=== PATIENT | male | born 1970 | race Caucasian/White ===

== ENCOUNTER 2019-04-26 18:00 | Emergency (ER) | payer OTHER ==
--- NOTE | 2019-04-26 19:49 | EDM.PDOC ---
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 He states he's had chills for the last 3 days [place] he does not know if he had fever but he has felt warm and flushed it does respond to antipyretics denies any other symptoms Headache Pain Score (Numeric/FACES): 7 - Related Data Allergies Allergy/AdvReac Type Severity Reaction Status Date / Time No Known Allergies Allergy Verified 04/26/19 18:58 Home Meds: Home Meds Acetaminophen [Tylenol] 650 mg PO Q6H 04/26/19 [History] Acetaminophen/Butalbital/Caff [Fioricet 325-50-40 MG] 2 tab PO QID 04/26/19 [ History] Levothyroxine [Synthroid] 50 mcg PO ACBREAKFAST 04/26/19 [History] Nivolumab [Opdivo] 240 mg IV ONETIME 04/26/19 [History] Ondansetron [Zofran ODT] 4 mg BUCCAL Q8H 04/26/19 [History] Pantoprazole Sodium [Protonix] 40 mg PO DAILY 04/26/19 [History] Sertraline [Zoloft] 50 mg PO DAILY 04/26/19 [History] dexAMETHasone [Dexamethasone] 2 mg PO Q12H 04/26/19 [History] oxyCODONE [Oxycodone HCl] 10 mg PO Q6H PRN 04/26/19 [History] traZODone 150 mg PO BEDTIME 04/26/19 [History] Past Medical History HEENT History: Reports: Other (See Below) Other HEENT History: right eye dysfunction, uses patch Genitourinary History: Reports: Renal Disease Neurological History: Reports: Headaches, Chronic, Other (See Below) Other Neuro History: 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 Psychiatric History: Reports: Depression Endocrine/Metabolic History: Reports: Hypothyroidism Oncologic (Cancer) History: Reports: Brain, Liver, Renal - Past Surgical History Head Surgeries/Procedures: Reports: Shunt GI Surgical History: Reports: Colon, Other (See Below) Other GI Surgeries/Procedures: partial diaphragm removed secondary to cancer plus liver resection Male Surgical History: Reports: Other (See Below) Other Male Surgeries/Procedures: right nephrectomy with right adrenal Endocrine Surgical History: Reports: Adrenal Gland Neurological Surgical History: Reports: Intracranial, Other (See Below) Other Neurological Surgeries/Procedures: cerebral shunt Social & Family History - Tobacco Use Smoking Status *Q: Never Smoker - Caffeine Use Caffeine Use: Reports: Coffee - Recreational Drug Use Recreational Drug Use: No ED ROS GENERAL - Review of Systems Review Of Systems: See Below Constitutional: Reports: Chills HEENT: Reports: No Symptoms Respiratory: Reports: No Symptoms Cardiovascular: Reports: No Symptoms GI/Abdominal: Reports: No Symptoms : Reports: No Symptoms Musculoskeletal: Reports: No Symptoms Skin: Reports: No Symptoms Neurological: Reports: Headache (Not out of the normal) ED EXAM, GENERAL - Physical Exam Exam: See Below Free Text/Narrative:: General: Male, not in any distress, alert and oriented x3 HEENT: head is atraumatic normocephalic, eye pupil is equal round and reactive left eye eye patch covering the right. Ears tympanic membranes clear and jensen landmarks and light reflex are present bilaterally canals are clear. Nose no septal deviation , nares are clear, no blood present. Mouth mucosa is moist and pink no erythema or exudate noted in soft palate, tongue is midline uvula is midline, dentition is intact. Neck: Supple no thyromegaly no tracheal deviation. Nodes: Cervical nodes subclavicular nodes nontender no palpable lymphadenopathy noted. Lungs: clear to auscultation bilaterally with symmetrical respirations, no adventitious noise appreciated. CV: Regular rate and rhythm S1 and S2 appreciated no murmurs rubs or gallops noted. Abdomen: Soft, nontender, no palpable masses or organomegaly appreciated, no distention no guarding bowel sounds are present, . Neuro: GCS 15 Skin: Warm and dry, intact Extremities: No lower extremity edema appreciated, pedal pulse is +2. Course - Vital Signs Last Recorded V/S: Last Vital Signs Temp 100 F 04/26/19 23:00 Pulse 117 H 04/26/19 23:00 Resp 16 04/26/19 23:00 BP 101/65 04/26/19 23:00 Pulse Ox 91 L 04/26/19 23:00 - Orders/Labs/Meds Orders: Active Orders 24 hr Category Date Time Status Peripheral IV Care [RC] . DIRECTED Care 04/26/19 20:11 Active Vital Signs [RC] Q1H Care 04/26/19 19:45 Active Chest 1V Frontal [CR] Urgent Exams 04/26/19 23:03 Taken CULTURE BLOOD [BC] Urgent Lab 04/26/19 20:58 Received CULTURE BLOOD [BC] Urgent Lab 04/26/19 20:58 Received LACTIC ACID [CHEM] Stat Lab 04/26/19 23:30 Ordered UA W/MICROSCOPIC [URIN] Urgent Lab 04/26/19 19:45 Ordered Lactated Ringers [Ringers, Lactated] 1,000 ml Med 04/26/19 21:45 Active IV ASDIRECTED Lactated Ringers [Ringers, Lactated] 1,000 ml Med 04/26/19 23:29 Ordered IV BOLUS Sodium Chloride 0.9% [Saline Flush] Med 04/26/19 20:11 Active 10 ml FLUSH ASDIRECTED PRN Vancomycin 1 gm Med 04/26/19 23:28 Ordered Sodium Chloride 0.9% [Normal Saline] 250 ml IV ONETIME Blood Culture x2 Reflex Set [OM.PC] Urgent Oth 04/26/19 19:45 Ordered Peripheral IV Insertion Adult [OM.PC] Urgent Oth 04/26/19 20:11 Ordered Medication Orders Lactated Ringer's (Ringers, Lactated) 1,000 mls @ 999 mls/hr IV ASDIRECTED [facility] Last Admin: 04/26/19 22:02 Dose: 999 mls/hr Vancomycin HCl 1 gm/ Sodium (Chloride) 250 mls @ 150 mls/hr IV ONETIME ONE Stop: 04/27/19 01:07 Lactated Ringer's (Ringers, Lactated) 1,000 mls @ 999 mls/hr IV BOLUS ONE Stop: 04/27/19 00:29 Sodium Chloride (Saline Flush) 10 ml FLUSH ASDIRECTED PRN PRN Reason: Keep Vein Open Last Admin: 04/26/19 21:10 Dose: 10 ml Labs: Laboratory Tests 04/26/19 04/26/19 04/26/19 Range/Units 19:45 19:45 19:45 WBC 4.2 L (4.5-11.0) K/uL RBC 4.16 L (4.30-5.90) M/uL Hgb 11.8 L (12.0-15.0) g/dL Hct 35.8 L (40.0-54.0) % MCV 86 (80-98) fL MCH 28 (27-31) pg MCHC 33 (32-36) % Plt Count 129 L (150-400) K/uL Neut % (Auto) 70 H (36-66) % Lymph % (Auto) 17 L (24-44) % Clarke % (Auto) 12 H (2-6) % Eos % (Auto) 1 L (2-4) % Baso % (Auto) 1 (0-1) % Sodium 138 L (140-148) mmol/L Potassium 3.8 (3.6-5.2) mmol/L Chloride 99 L (100-108) mmol/L Carbon Dioxide 30 (21-32) mmol/L Anion Gap 12.8 (5.0-14.0) mmol/L BUN 19 H (7-18) mg/dL Creatinine 1.3 (0.8-1.3) mg/dL Est Cr Clr Drug Dosing 74.01 mL/min Estimated GFR (MDRD) 59 L (>60) Glucose 102 (74-106) mg/dL Lactic Acid 2.5 H (0.4-2.0) mmol/L Calcium 9.3 (8.5-10.1) mg/dL Total Bilirubin 0.9 (0.2-1.0) mg/dL AST 22 (15-37) U/L ALT 34 (12-78) U/L Alkaline Phosphatase 84 (46-116) U/L C-Reactive Protein 14.38 H (0.0-0.3) mg/dL Total Protein 7.0 (6.4-8.2) g/dL Albumin 2.6 L (3.4-5.0) g/dL Globulin 4.4 H (2.3-3.5) g/dL Albumin/Globulin Ratio 0.6 L (1.2-2.2) Meds: Medications Generic Name Dose Route Start Last Admin Trade Name Freq PRN Reason Stop Dose Admin Lactated Ringer's 1,000 mls @ 999 mls/hr 04/26/19 21:45 04/26/19 22:02 Ringers, Lactated IV 999 mls/hr ASDIRECTED RASHARD Administration Vancomycin HCl 1 gm/ Sodium 250 mls @ 150 mls/hr 04/26/19 23:28 Chloride IV 04/27/19 01:07 ONETIME ONE Lactated Ringer's 1,000 mls @ 999 mls/hr 04/26/19 23:29 Ringers, Lactated IV 04/27/19 00:29 BOLUS ONE Sodium Chloride 10 ml 04/26/19 20:11 04/26/19 21:10 Saline Flush FLUSH 10 ml ASDIRECTED PRN Administration Keep Vein Open Discontinued Medications Generic Name Dose Route Start Last Admin Trade Name Freq PRN Reason Stop Dose Admin Piperacillin Sod/Tazobactam 100 mls @ 200 mls/hr 04/26/19 21:41 04/26/19 22: 06 Sod 4.5 gm/ Sodium Chloride IV 04/26/19 22:10 200 mls/hr NOW STA Administration Sodium Chloride Confirm 04/26/19 21:47 04/26/19 22:12 Normal Saline Administered 04/26/19 21:48 Not Given Dose 100 mls @ as directed .ROUTE .STK-MED ONE Piperacillin Sod/Tazobactam Sod Confirm 04/26/19 21:47 04/26/19 22:06 Zosyn Administered 04/26/19 21:48 Not Given Dose 4.5 gm .ROUTE .STK-MED ONE Departure - Departure Time of Disposition: 23:34 Disposition: DC/Tfer to Acute Hospital 02 Condition: Fair Clinical Impression: Sepsis Qualifiers: Sepsis type: sepsis due to unspecified organism Qualified Code(s): A41.9 - Sepsis, unspecified organism - Discharge Information Referrals: PCP,None [Primary Care Provider] - Forms: ED Department Discharge - My Orders Last 24 Hours: My Active Orders 04/26/19 19:45 Vital Signs [RC] Q1H UA W/MICROSCOPIC [URIN] Urgent Blood Culture x2 Reflex Set [OM.PC] Urgent 04/26/19 20:11 Peripheral IV Care [RC] . DIRECTED Sodium Chloride 0.9% [Saline Flush] 10 ml FLUSH ASDIRECTED PRN Peripheral IV Insertion Adult [OM.PC] Urgent 04/26/19 20:58 CULTURE BLOOD [BC] Urgent CULTURE BLOOD [BC] Urgent 04/26/19 21:45 Lactated Ringers [Ringers, Lactated] 1,000 ml IV ASDIRECTED 04/26/19 23:03 Chest 1V Frontal [CR] Urgent 04/26/19 23:28 Vancomycin 1 gm Sodium Chloride 0.9% [Normal Saline] 250 ml IV ONETIME 04/26/19 23:29 Lactated Ringers [Ringers, Lactated] 1,000 ml IV BOLUS 04/26/19 23:30 LACTIC ACID [CHEM] Stat - Assessment/Plan Last 24 Hours: My Active Orders 04/26/19 19:45 Vital Signs [RC] Q1H UA W/MICROSCOPIC [URIN] Urgent Blood Culture x2 Reflex Set [OM.PC] Urgent 04/26/19 20:11 Peripheral IV Care [RC] . 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 Gaby Mckeon at 22:30 kindly accepted the patient in transport will be transported via EMS ground. 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
[2019-04-26] MEDS ORDERED: Sodium Chloride 0.9% 10 ML Syringe FLUSH PRN (20:11)
[2019-04-26] MEDS ORDERED: Piperacillin/Tazobactam 4.5 GM in Sodium Chloride 0.9% 100 ML IV STA (21:41)
[2019-04-26] MEDS ORDERED: Lactated Ringers 1,000 ML IV SCH (21:45)
[2019-04-26] MEDS ORDERED: Piperacillin/Tazobactam 4.5 GM Vial ONE (21:47)
[2019-04-26] MEDS ORDERED: Sodium Chloride 0.9% 100 ML ONE (21:47)
[2019-04-26] MEDS ORDERED: Lactated Ringers 1,000 ML IV ONE (23:29)
--- NOTE | 2019-04-26 23:35 | CRLCR ---
HISTORY: Fever COMPARISON: None available FINDINGS: A portable erect AP view of the chest was obtained at 2315 hours. The lungs are clear. No focal or diffuse infiltrates are present. A right-sided ventricular peritoneal catheter passes down the lateral portion of the right chest. The heart is mildly enlarged. The mediastinum is otherwise normal in appearance. The osseous structures are normal in appearance for the patient`s age. IMPRESSION: No active disease seen in the chest. Mild cardiomegaly. Dictated by Jesus Fisher MD @ Apr 26 2019 11:31PM Signed by Dr. Jesus Fisher @ Apr 26 2019 11:32PM
== END 2019-04-27 01:13 ==
LOC: JP.ED 18:00
DX: A41.9 Sepsis, unspecified organism (principal); C64.9 Malignant neoplasm of unspecified kidney, except renal pelvis; C79.31 Secondary malignant neoplasm of brain; F32.9 Major depressive disorder, single episode, unspecified; E03.9 Hypothyroidism, unspecified; Z79.899 Other long term (current) drug therapy
CPT/HCPCS: 36415; 71045; 80053; 81001; 83605; 85025; 86140; 87040; 96365; 96367; 99285; J2543; J3370; J7030; J7050; J7120